=== PATIENT | male | born 1940 | race Caucasian/White ===

== ENCOUNTER 2017-07-07 08:17 | Observation (INO) ==
[2017-07-07 08:43] LABS: Basophils % 0.3 %; Eosinophils # 0.1 K/mcL (0.0-0.6); Hematocrit 42.3 % (37.5-50.1); Immature Granulocytes % 0.3 % (0-4); Lymphocytes # 1.1 K/mcL (0.6-4.6); Lymphocytes % 33.6 %; Mean Corpuscular HGB Conc 35.5 g/dL (31.6-35.5); Mean Corpuscular Hemoglobin 30.3 pg (28.0-33.3); Mean Corpuscular Volume 85.5 fL (83.0-100.0); Mean Platelet Volume 12.7 fL (9.4-12.4); Monocytes # 0.3 K/mcL (0.0-1.3); Monocytes % 9.3 %; Neutrophils # 1.8 K/mcL (1.6-8.9); Red Blood Count 4.95 M/mcL (4.19-5.50); Segmented Neutrophils % 53.5 %
[2017-07-07 08:50] LABS: INR 1.1; Prothrombin Time 11.7 Seconds (9.4-12.1)
[2017-07-07 08:52] LABS: Activated Partial Thrombo Time 34.5 Seconds (26.0-36.0); Platelet Count 94 K/mcL (140-400)
[2017-07-07 09:03] LABS: Calcium 9.2 mg/dL (8.6-10.8); Potassium 3.9 mEq/L (3.5-4.5)
[2017-07-07] MEDS ORDERED: cloNIDine HCl 0.1 MG TABLET PO STA (09:08)
--- NOTE | 2017-07-07 09:09 | Emergency Department Note ---
Disposition Clinical Impression: Leg pain, left Disposition: Admitted As Inpatient Condition: Good Instructions: Leg Pain (ED) Reasons to Return/Additional Instructions: Venous Doppler all and have scheduled Blood pressure screening: When you had your blood pressure taken, if the top number was greater than 120 with a bottom number was greater than 80, I discussed and recommended that you call your primary care provider or a physician of your choice this week to arrange follow-up for further evaluation of your blood pressure. Elevated blood pressures which go untreated can lead to stroke, heart attack, kidney failure and other life-threatening diseases. This is a screening exam and recommendations are to follow with your Family Physician. ( We discussed reasons why the elevation could be occurring at this time. ) If you have had an EKG and/or x-ray performed in the emergency department, it will be reviewed by the carpentry teacher and/or radiologist. If the review changes your diagnosis or treatment you will be contacted at the phone number you provided. Prescribed outpatient testing: Please call to schedule an appointment for the test that was ordered on the form provided. If you been prescribed an antibiotic: Take it as instructed until itis all finished. If you cannot tolerate that medication for some reason, call your physician for a replacement. If he had a specimen collected for a culture, a culture report takes 48-72 hours to generate. You will be contacted if a change in treatment is needed. Return if your condition worsens or if you have severe pain, fever, vomiting or difficulty breathing. If you received or were prescribed a medication that may cause drowsiness ( Tramadol, Phenergan, Trazodone, Diazepam, Lorazepam, Hydroxyzine, Xanax, Hydrocodone, Oxycodone, Codeine, or any other medication) DO NOT drive or drink alcohol, or operate machinery that requires you to be alert for at least 8 hours after taking that medication. If you smoke or chew tobacco products: discuss with your family physician options to help in the cessation in the use of tobacco products. If you to find a physician: Go to [email or web address] or call: [facility], [facility] [phone] [facility], You may have multiple scripts and some may have been electronically sent . If you are give a printed script please also take this in when filling the scripts. A diagnosis may require multiple medications to treat and all are important in your healthcare issues. Referrals: NONE,PCP [Primary Care Provider] - Forms: ED Satisfaction Letter Time of Disposition: 12:03 (michela velasco [facility]) Extremity Problem HPI - General Chief complaint: ED Extremity Problem,Nontraumatic Stated complaint: pain to left leg Time Seen by Provider: 07/07/17 08:22 Source: patient Mode of arrival: ambulatory Limitations: no limitations Nursing Notes Reviewed: Yes Vital Signs Reviewed: Yes - History of Present Illness HPI Narrative: 76-year-old male who presents to the emergency room his been having left leg pain timeframe is unclear patient initially told nursing staff that it was since his stroke but told but told told EMS that it was 2 weeks but told myself that was only 2 days the family member that is here with a brought him in because he had a only been complaining of it to the family for the last couple of days" the family member states that he has been showing some signs of dementia significantly worsening since the recent stroke patient denies any shortness of breath chest pain chest pressure palpitations cough hemoptysis or sputum production states that he does get around the house recent pains in the back of the leg with radiation up into the inner aspect of the left thigh he has had a little bit of pain in the back denies though any difficulty with bowel movements denies difficulty urinating or stooling denies any other rashes or lesions denies any additional complaints with the entire review of systems Pt Subjective Complaint: extremity swelling Onset (ago): day(s) (3) Consistency: intermittent Injury Location: left, lower extremity Pain Scale: 2 Quality: aching Improves with: nothing Worsens with: walking, palpation Associated symptoms: Denies: chest pain, shortness of breath, abdominal pain, back pain, bowel/bladder symptoms, fever, myalgias, arthralgias, rash, change in appearance, swelling, redness Context: other (cva) - Related Data Home Medications Medication Instructions Recorded Confirmed Aspirin [Lo-Dose Aspirin EC] 81 mg PO BID 07/07/17 07/07/17 Atorvastatin [Lipitor] 40 mg PO HS 07/07/17 07/07/17 Cyanocobalamin (Vitamin B-12) 1,000 mcg PO DAILY 07/07/17 07/07/17 [Vitamin B12] Escitalopram [Lexapro] 5 mg PO DAILY 07/07/17 07/07/17 Glimepiride [Amaryl] 4 mg PO DAILY 07/07/17 07/07/17 Losartan [Cozaar] 25 mg PO DAILY 07/07/17 07/07/17 Omeprazole [PriLOSEC] 40 mg PO DAILY 07/07/17 07/07/17 amLODIPine [Norvasc] 10 mg PO DAILY 07/07/17 07/07/17 cloNIDine HCl [Clonidine HCl] 0.2 mg PO BID 07/07/17 07/07/17 hydroCHLOROthiazide 12.5 mg PO DAILY 07/07/17 07/07/17 [Hydrochlorothiazide] metFORMIN [Glucophage] 1,000 mg PO BID 07/07/17 07/07/17 Allergies Allergy/AdvReac Type Severity Reaction Status Date / Time No Known Allergies Allergy Verified 07/07/17 08:18 All systems ED: reviewed and negative except as stated. Review of Systems: As Per HPI Constitutional: Reports: weakness. Denies: fever, chills Eyes: Denies: eye pain, eye discharge ENT ED: Denies: ear pain, throat pain Cardiovascular: Denies: chest pain, palpitations Respiratory: Denies: cough, dyspnea Gastrointestinal: Denies: abdominal pain, nausea, vomiting Genitourinary: Denies: urgency, dysuria, frequency Musculoskeletal: Denies: back pain, neck pain Integumentary: Denies: rash, abrasion, lesions Neurological: Reports: weakness, abnormal gait. Denies: headache Psychiatric: Denies: anxiety, depression Endocrine: Denies: fatigue, heat or cold intolerance Hematological/Lymphatic: Denies: easy bleeding Allergic/Immunologic: Denies: facial swelling Past Medical History - Past Medical History Attestation: Yes The following information was validated with the patient. Source: patient, old records reviewed, nursing notes reviewed Medical history: Reports: CVA, diabetes, hyperlipidemia, hypertension Surgical history: Reports: no surgical history Psychiatric history: Reports: no psych history - Social History Smoking Status: Never smoker Smokeless Tobacco Status: No Alcohol use: Reports: none Drug use: Reports: none Physical Exam - General Limitations: no limitations, altered mental status (pt showing signs of early dementa=ia in the er) General appearance: alert, in no apparent distress - Head Head exam: atraumatic, normocephalic, normal inspection - Eye Eye exam: Present: normal appearance, PERRL, EOMI - ENT ENT exam: normal exam, normal oropharynx, mucous membranes moist, normal external ear exam - Neck Neck exam: Present: normal inspection, full ROM, trachea midline - Chest Chest inspection: Present: normal inspection, symmetric chest wall rise - Respiratory Respiratory exam: Present: normal lung sounds bilaterally - Cardiovascular Cardiovascular exam: Present: regular rate, normal rhythm, normal heart sounds - Abdominal Exam Abdominal exam: Present: soft, Non-Tender, normal bowel sounds. Absent: mass, pulsatile mass - Extremities Exam Extremities exam: Present: normal inspection, full ROM, normal capillary refill , other (pt showing some residual weakness on the left hand side due to prior CVA). Absent: tenderness - Expanded Upper Extremity Exam Shoulder exam: Present: normal inspection, full ROM Arm exam: Present: normal inspection, full ROM Elbow exam: Present: normal inspection, full ROM Forearm/Wrist exam: Present: normal inspection, full ROM Hand exam: Present: normal inspection, full ROM Vascular exam: Normal: capillary refill, radial pulse - Expanded Lower Extremity Exam Hip/Pelvis exam: Present: normal inspection, full ROM Upper leg exam: Present: normal inspection, full ROM Knee exam: Present: normal inspection, full ROM Lower leg exam: Present: normal inspection, full ROM, tenderness, swelling, Homans' sign Ankle exam: Present: normal inspection, full ROM Foot/toe exam: Present: normal inspection, full ROM Neurovascular/Tendon exam: Present: normal capillary refill, normal fine/light touch Gait: observed and normal - Back Exam Back exam: Present: normal inspection, full ROM. Absent: muscle spasm - Neurological Exam Neurological exam: Present: alert, oriented X3, CN II-XII intact, normal gait - Psychiatric Psychiatric exam: Present: normal affect, normal mood - Skin Skin exam: Present: warm, dry, intact, normal color Course Course Narrative: Patient seen and examined elevated d-dimer noted as result had a CTA performed CTA was negative as result the patient be admitted for observation Doppler will be done in the a.m. Vital Signs Temperature 97.8 F 07/07/17 08:19 Pulse Rate 59 07/07/17 08:19 Respiratory Rate 61 07/07/17 08:19 Blood Pressure 210/114 07/07/17 08:19 O2 Sat by Pulse Oximetry 96 07/07/17 08:19 Temperature 97.8 F 07/07/17 08:19 Pulse Rate 56 07/07/17 11:30 Respiratory Rate 18 07/07/17 11:30 Blood Pressure 152/94 07/07/17 11:30 O2 Sat by Pulse Oximetry 95 07/07/17 11:30 Oxygen Delivery Oxygen Delivery Room Air Extremity Problem, Nontraumati - Differential Diagnosis Likely: deep venous thrombosis, lower extremity edema - Medical Records Medical records reviewed: Yes I reviewed the patient's medical records. - Lab Data Lab results reviewed: Yes I reviewed the patient's lab results. Result diagrams: 07/07/17 08:29 07/07/17 08:29 Lab Results 07/07/17 07/07/17 07/07/17 Range/Units 08:29 08:29 08:29 WBC 3.3 L (4.3-11.1) K/mcL RBC 4.95 (4.19-5.50) M/mcL Hgb 15.0 (12.9-16.9) g/dL Hct 42.3 (37.5-50.1) % MCV 85.5 (83.0-100.0) fL MCH 30.3 (28.0-33.3) pg MCHC 35.5 (31.6-35.5) g/dL RDW 12.0 (11.5-14.5) % Plt Count 94 L (140-400) K/mcL MPV 12.7 H (9.4-12.4) fL Immature Gran % 0.3 (0-4) % Seg Neutrophils % 53.5 % Lymphocytes % 33.6 % Monocytes % 9.3 % Eosinophils % 3.0 % Basophils % 0.3 % Neutrophils # 1.8 (1.6-8.9) K/mcL Lymphocytes # 1.1 (0.6-4.6) K/mcL Monocytes # 0.3 (0.0-1.3) K/mcL Eosinophils # 0.1 (0.0-0.6) K/mcL Basophils # 0.0 (0.0-0.2) K/mcL PT 11.7 (9.4-12.1) Seconds INR 1.1 APTT 34.5 (26.0-36.0) Seconds D-Dimer 736 H (0-500) ng/mLFEU Sodium 140 (136-145) mEq/L Potassium 3.9 (3.5-4.5) mEq/L Chloride 103 (98-109) mEq/L Carbon Dioxide 27 (19-29) mEq/L BUN 23 (8-26) mg/dL Creatinine 1.49 H (0.72-1.25) mg/dL Est GFR ( Amer) 56 L (> 60) Est GFR (Non-Af Amer) 46 L (> 60) BUN/Creatinine Ratio 15 (6-26) Glucose 184 H (70-99) mg/dL Calculated Osmolality 298 (280-300) Calcium 9.2 (8.6-10.8) mg/dL Critical Care Time Critical Care Time: No
[2017-07-07] MEDS ORDERED: 0.9 % Sodium Chloride 1,000 ML IVC ONE (11:00)
[2017-07-07] MEDS ORDERED: *HR* Enoxaparin 30 MG/0.3 ML SYRINGE SQ ONE (12:03)
[2017-07-07] MEDS ORDERED: Dextrose Gel 15 GM PO PRN ×2 (12:43)
[2017-07-07] MEDS ORDERED: Naloxone 0.4 MG/ML INJ IVP PRN (12:43)
[2017-07-07] MEDS ORDERED: *HR* Dextrose 50 % in Water (Syg) 50 ML SYRINGE IVP PRN (12:43)
[2017-07-07] MEDS ORDERED: 0.9 % Sodium Chloride 1,000 ML IVC SCH (12:43)
[2017-07-07] MEDS ORDERED: Acetaminophen 325 MG TABLET PO PRN (12:43)
[2017-07-07] MEDS ORDERED: Ibuprofen 400 MG TABLET PO PRN (12:43)
[2017-07-07] MEDS ORDERED: D5% in Water 1,000 ML IVC PRN (12:43)
--- NOTE | 2017-07-07 15:09 | Internal Med History&Physical ---
Date of Encounter: 07/07/17 Time of Encounter: 14:40 Assessment and Plan (1) Leg pain, left Current visit: Yes Status: Chronic Chronic with acute worsening. Doubt acute DVT. Elevated d-dimer is within age- adjusted range of normal. I talked to the family and it was agreed to proceed with venous ultrasound tomorrow. He will be discharged tomorrow after the ultrasound and will be moving to [place] to live with his grandson. (2) CKD (chronic kidney disease) stage 3, GFR 30-59 ml/min Current visit: Yes Status: Chronic Present on all labs since the earliest reported 2013 labs in [place] archive system. Monitor renal indices as needed. Internal Medicine - H&P: HPI Chief complaint: Left leg pain Admitted From: Home Plans for Post Hospital Care: Home History of present illness: Mr. Lockwood is a 76 year old male who came to the emergency room stating he has had pain in his left leg since an July 2016 stroke. The pain seemed to be worsening over the last few days. He came to emergency room and was evaluated. D-dimer was elevated. Chest CTA was unremarkable for pulmonary embolus. He was admitted to [facility] floor for a left leg ultrasound and further evaluation as needed. He denies past history of DVT or pulmonary embolus. He has not had prolonged inactivity. His cardiovascular history is pertinent for hypertension but no known AR heart failure or angina. Past Med Surg Social Fam HX - Past Medical History Medical history: CVA, diabetes, hyperlipidemia, hypertension Psychiatric history: no psych history - Past Surgical History Surgical History: no surgical history - Social History Smoking Status: Never smoker Smokeless Tobacco Status: No Alcohol use: none Drug use: none Internal Medicine - H&P: Meds Aspirin [Lo-Dose Aspirin EC] 81 mg PO BID 07/07/17 [History] Atorvastatin [Lipitor] 40 mg PO HS 07/07/17 [History] Cyanocobalamin (Vitamin B-12) [Vitamin B12] 1,000 mcg PO DAILY 07/07/17 [History ] Escitalopram [Lexapro] 5 mg PO DAILY 07/07/17 [History] Glimepiride [Amaryl] 4 mg PO DAILY 07/07/17 [History] Losartan [Cozaar] 25 mg PO DAILY 07/07/17 [History] Omeprazole [PriLOSEC] 40 mg PO DAILY 07/07/17 [History] amLODIPine [Norvasc] 10 mg PO DAILY 07/07/17 [History] cloNIDine HCl [Clonidine HCl] 0.2 mg PO BID 07/07/17 [History] hydroCHLOROthiazide [Hydrochlorothiazide] 12.5 mg PO DAILY 07/07/17 [History] metFORMIN [Glucophage] 1,000 mg PO BID 07/07/17 [History] 3 Allergy/AdvReac Type Severity Reaction Status Date / Time No Known Allergies Allergy Verified 07/07/17 08:18 All Systems PM: A 10-system review of systems was performed and is negative for pertinent findings except as documented above in the HPI. Review of systems: Cardiovascular: As per history of present illness Respiratory: He smoked for approximately 10 years in early adulthood. He denies chronic lung disease. GI: He denies disorders of his liver gallbladder or exocrine pancreas : No history of hematuria dysuria or kidney stones. He has CKD stage III but was unaware of this. Neurologic: He had an ischemic stroke July 2016 and received TPA at [facility] prior to transfer to [facility]. 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 He was at [facility] for a few weeks but has returned to independent living. He does not have known seizures. Endocrine: He was diagnosed with DM2 over 30 years ago. He has hyperlipidemia but no known thyroid disease. Hematology/oncology: Denies blood disorders or cancers. He does have mild thrombocytopenia. Psychiatric: Denies anxiety depression or other mental health issues Musculoskeletal: He denies arthritis gout other bone joint or muscle disorders. - Constitutional Vitals: Temp Pulse Resp BP Pulse Ox 97.6 F 62 18 196/90 96 07/07/17 13:09 07/07/17 13:09 07/07/17 13:09 07/07/17 13:09 07/07/17 13:09 Exam: Gen.: He is a well-developed well-nourished male sitting on the side who appears in no acute distress. HEENT: Head is atraumatic and normocephalic. Eyes: EOMI. There is no scleral icterus. Mouth: Mucosa is moist. Neck: Supple and nontender. There is no thyromegaly or adenopathy noted. Heart: Regular without murmurs gallops or ectopics. Lungs: No wheezes or crackles are heard. Abdomen: Soft and nontender. Exam is limited because he is in the seated position. Extremities: He has 1+ edema of the dorsum of the feet bilaterally. There is also slight edema of the anterior shins bilaterally. Edema slightly worse on the left than the right. Feet are slightly cool to touch. Dorsalis pedis and posterior tibial pulses are not palpable because of the edema. He has no reproduction of his left leg pain by straight leg raising or internal/external rotation at the hip. He has no significant tenderness of the left trochanteric bursa. Neurologic: Mental status: He is talkative and a fair to good historian. Cranial nerves: Smile is symmetric. There is slight flattening of the left nasolabial fold. Forehead wrinkles bilaterally. Tongue protrudes midline. EOMI. Motor: There is no pronator drift. Cerebellar: Finger to nose is intact bilaterally. Skin: Warm and dry Internal Med - H&P Results - Labs CBC & Chem 7: 07/07/17 08:29 07/07/17 08:29
[2017-07-07] MEDS: cloNIDine HCl 0.1 MG TABLET PO SCH ×3 (15:32→21:53)
[2017-07-07] MEDS: Acetaminophen 325 MG TABLET PO SCH (18:19)
[2017-07-07] MEDS ORDERED: cloNIDine HCl 0.1 MG TABLET PO SCH (21:00)
[2017-07-07] MEDS ORDERED: traMADol 50 MG TABLET PO PRN (21:26)
[2017-07-07] MEDS: *HR* Enoxaparin 100 MG/ML SYRINGE SQ SCH (21:52)
[2017-07-07] MEDS: Aspirin Enteric Coated 81 MG Tablet PO SCH (21:52)
[2017-07-07] MEDS ORDERED: *HR* OxyCODONE/APAP 5/325 TABLET PO PRN (23:25)
[2017-07-07] MEDS ORDERED: *HR* OxyCODONE/APAP 5/325 TABLET PO ONE (23:30)
[2017-07-07] MEDS ORDERED: amLODIPine 5 MG TABLET PO ONE (23:33)
[2017-07-08] MEDS: Acetaminophen 325 MG TABLET PO SCH ×2 (04:36→09:47)
[2017-07-08 05:10] LABS: Basophils % 0.3 %; Eosinophils # 0.1 K/mcL (0.0-0.6); Eosinophils % 2.3 %; Hematocrit 39.9 % (37.5-50.1); Hemoglobin 14.2 g/dL (12.9-16.9); Immature Granulocytes % 0.7 % (0-4); Lymphocytes # 1.3 K/mcL (0.6-4.6); Lymphocytes % 43.3 %; Mean Corpuscular HGB Conc 35.6 g/dL (31.6-35.5); Mean Corpuscular Hemoglobin 30.4 pg (28.0-33.3); Mean Corpuscular Volume 85.4 fL (83.0-100.0); Mean Platelet Volume 12.8 fL (9.4-12.4); Monocytes # 0.3 K/mcL (0.0-1.3); Monocytes % 9.4 %; Neutrophils # 1.4 K/mcL (1.6-8.9); Red Blood Count 4.67 M/mcL (4.19-5.50); Red Cell Distribution Width 12.1 % (11.5-14.5)
[2017-07-08 05:12] LABS: Platelet Count 88 K/mcL (140-400)
[2017-07-08 05:30] LABS: Calcium 8.9 mg/dL (8.6-10.8); Potassium 3.5 mEq/L (3.5-4.5)
[2017-07-08] MEDS ORDERED: amLODIPine 5 MG TABLET PO SCH (09:00)
[2017-07-08] MEDS ORDERED: hydroCHLOROthiazide 25 MG TABLET PO SCH (09:00)
[2017-07-08] MEDS ORDERED: amLODIPine 5 MG TABLET PO ONE (09:00)
[2017-07-08] MEDS ORDERED: Cyanocobalamin (B-12) 1,000 MCG TABLET PO SCH (09:00)
[2017-07-08] MEDS: *HR* Enoxaparin 100 MG/ML SYRINGE SQ SCH (09:08)
[2017-07-08] MEDS: cloNIDine HCl 0.1 MG TABLET PO SCH (09:49)
[2017-07-08] MEDS: Aspirin Enteric Coated 81 MG Tablet PO SCH (09:49)
[2017-07-08 10:38] VITALS: BP 172/78
--- NOTE | 2017-07-08 14:22 | Discharge Summary ---
Date of Encounter: 07/08/17 Time of Encounter: 14:10 - Discharge Diagnosis (1) Leg pain, left Priority: Primary Status: Chronic (2) CKD (chronic kidney disease) stage 3, GFR 30-59 ml/min Priority: Secondary Status: Chronic - Discharge Medications Prescriptions: Doxazosin [Cardura] 4 mg PO HS #30 tablet Escitalopram [Lexapro] 5 mg PO DAILY #15 tablet Losartan Potassium [Cozaar] 50 mg PO DAILY #30 tab Omeprazole [PriLOSEC] 40 mg PO DAILY PRN #30 capsule.dr PAN Reason: Dyspepsia Home Medications: Aspirin [Lo-Dose Aspirin EC] 81 mg PO BID 07/07/17 [History] Atorvastatin [Lipitor] 40 mg PO HS 07/07/17 [History] Cyanocobalamin (Vitamin B-12) [Vitamin B12] 1,000 mcg PO DAILY 07/07/17 [History ] Glimepiride [Amaryl] 4 mg PO DAILY 07/07/17 [History] cloNIDine HCl [Clonidine HCl] 0.2 mg PO BID 07/07/17 [History] hydroCHLOROthiazide [Hydrochlorothiazide] 12.5 mg PO DAILY 07/07/17 [History] metFORMIN [Glucophage] 1,000 mg PO BID 07/07/17 [History] Doxazosin [Cardura] 4 mg PO HS #30 tablet 07/08/17 [Rx] Escitalopram [Lexapro] 5 mg PO DAILY #15 tablet 07/08/17 [Rx] Losartan Potassium [Cozaar] 50 mg PO DAILY #30 tab 07/08/17 [Rx] Omeprazole [PriLOSEC] 40 mg PO DAILY PRN #30 capsule. 07/08/17 [Rx] Allergies/Adverse Reactions: 3 Allergy/AdvReac Type Severity Reaction Status Date / Time No Known Allergies Allergy Verified 07/07/17 08:18 Date of admission: 07/07/17 12:36 Primary care physician: PCP NONE Consults: 07/07/17 13:24 Consult to Entry Level Project Coordinator [CONS] Routine Reason for SW Consult: discharge planning. pt unable to care for self - Patient Status Disposition: Home, Self-Care Condition: Good Overall status at discharge: patient is progressing back to baseline - Discharge Instructions Follow Up With: NONE,PCP [Primary Care Provider] - 1 week - Diet and Activity Activity: resume usual activities as tolerated Diet: advance to your usual diet Hospital course: Mr. Lockwood is a 76 year old male who came to the emergency room stating he has had pain in his left leg since an July 2016 stroke. The pain seemed to be worsening over the last few days. He came to emergency room and was evaluated. D-dimer was elevated. Chest CTA was unremarkable for pulmonary embolus. He was admitted to [facility] for a left leg ultrasound and further evaluation as needed. Initial orders were written by the emergency room physician. I saw him on July 07 and performed a history and physical. A left leg venous ultrasound was done the early afternoon of July 08. No evidence of DVT was seen. I discontinued his amlodipine to lessen edema. He was started on doxazosin and higher dose Cozaar to improve blood pressure control. On July 08 he was stable for discharge home. He will follow with a [place] physician as soon as an appointment can be arranged. He is moving to the [place] area to live with his son. - Time Spent with Patient Total time spent providing and/or coordinating discharge services: - Constitutional Vitals: Temp Pulse Resp BP Pulse Ox 97.6 F 79 17 172/78 96 07/08/17 10:37 07/08/17 10:37 07/08/17 10:37 07/08/17 10:37 07/08/17 10:37
[2017-07-08] MEDS ORDERED: FLUARIX QUAD 2017-18 36MOS UP/PF 0.5 ML SYRINGE IM ONE (14:59)
--- NOTE | 2017-07-09 07:53 | Venous Imaging Report ---
LE Venous Duplex Patient Name:Xavier Lockwood Order Number:[id number] Procedure Date:07/08/2017 Date:1940ge:76 yrs Gender:Male Location:[facility] Room #: 42 Fire Prevention Specialist:True Aldrich RDCS, RVT Referring MD:Janie Vizcaino DO Reading MD:Viktor Aparicio MD Primary Indications:Swelling of limb Secondary Indications: Impressions: Normal left lower extremity deep and superficial venous exam. Normal contralateral common femoral vein. Findings Venous Duplex Results: Right: Venous imaging of the lower extremity reveals full patency and normal vessel compressibility of the right common femoral. Doppler signals in the evaluated veins were normal. Left: Venous imaging of the lower extremity reveals full patency and normal vessel compressibility of the left distal iliac, left common femoral, left superficial femoral, left popliteal, left posterior tibial, left peroneal, left calf oil heaterman, left saphenofemoral junction, left great saphenous and left lesser saphenous. Doppler signals in the evaluated veins were normal. Prior Study: No change compared to prior study dated: 03/14/2017. Lower Extremity Venous Duplex Side Vein Compress Spontaneous Flow Augment Diameter (cm) Depth (cm) Left Distal Iliac Normal Yes Phasic Yes Left Common Femoral Normal Yes Phasic Yes Left Superficial Femoral Normal Yes Phasic Yes Left Popliteal Normal Yes Phasic Yes Left Posterior Tibial Normal Yes Phasic Yes Left Peroneal Normal Yes Phasic Yes Left Calf Vehicle Service Agent Normal Yes Phasic Yes Left Saphenofemoral Junction Normal Yes Phasic Yes Left Great Saphenous Normal Yes Phasic Yes Left Lesser Saphenous Normal Yes Phasic Yes Right Common Femoral Normal Yes Phasic Yes Updated by Viktor Aparicio MD on 07/09/2017 7:48:13 AM electronically signed on 07/09/2017 7:48:24 AM with status of Final
== END 2017-07-08 15:15 | disposition home or self-care (01) ==
LOC: INPPIK 08:17 → EMEROOPIK 08:17 → INPPIK 12:55
PROVIDERS: ADMIT Internal Medicine; ATTEND Internal Medicine

== ENCOUNTER 2018-03-07 21:00 | Inpatient (IN) ==
[2018-03-07] MEDS ORDERED: Lidocaine -MPF 2% 5 ML VIAL INFILT ONE (21:21)
--- NOTE | 2018-03-07 21:24 | Emergency Department Note ---
Disposition Clinical Impression: Laceration, Injury of tendon of left hand, Dementia, Renal insufficiency Disposition: Transfer Short-Term Hosp Condition: Fair Time of Disposition: 23:27 ( will place in observation) Wound/Laceration HPI - General Chief Complaint: ED Wound/Laceration Stated Complaint: 'SCRAPE TO LEFT HAND" Time Seen by Provider: 03/07/18 21:23 Source: EMS Mode of arrival: EMS Limitations: age Nursing Notes Reviewed: Yes Vital Signs Reviewed: Yes - History of Present Illness HPI Narrative: Patient presents via EMS after sustaining a fall and laceration to the palmar aspect of the left hand over the palmar crease. Patient reports that last week he had a fall similarly and had landed on his left hand and he still has some sutures intact from a few days ago. He now has a very large laceration involving the palm of the hand and I have tried to explain to the patient that this is an area which is very worrisome for tendon injury. I have told him that he will most likely need to see a hand surgeon in follow-up. Patient's daughter is at bedside, and reports that patient has had this occur twice where he has been found at nighttime wandering the streets, and she is concerned that he was going to get himself killed. Daughter is asking that patient be admitted for chcf placement. Onset (ago): [employer] Extremity Location: Left: hand (Patient has a large laceration involving the crease of the left hand,) Place: outdoors Mechanism: accidental, fall Associated symptoms: Reports: pain Pain Severity: moderate Pain Scale: 5 - Related Data Home Medications Medication Instructions Recorded Confirmed Aspirin [Lo-Dose Aspirin EC] 81 mg PO DAILY 07/07/17 03/07/18 Cyanocobalamin (Vitamin B-12) 1,000 mcg PO DAILY 07/07/17 03/07/18 [Vitamin B12] cloNIDine HCl [Clonidine HCl] 0.2 mg PO BID 07/07/17 03/07/18 hydroCHLOROthiazide 12.5 mg PO DAILY 07/07/17 03/07/18 [Hydrochlorothiazide] metFORMIN [Glucophage] 1,000 mg PO BID 07/07/17 03/07/18 Losartan Potassium [Cozaar] 100 mg PO DAILY 10/02/17 03/07/18 Melatonin 5 mg PO HS 02/25/18 03/07/18 Previous Rx's Medication Instructions Recorded cephALEXin [Keflex] 500 mg PO QID #40 capsule 03/07/18 Allergies Allergy/AdvReac Type Severity Reaction Status Date / Time No Known Allergies Allergy Verified 02/25/18 17:49 Constitutional: Denies: fever, chills, weakness, weight change Eyes: Denies: eye pain, eye discharge, vision change ENT ED: Denies: ear pain, throat pain, dental pain, hearing loss, epistaxis, congestion, dysphagia Cardiovascular: Denies: chest pain, palpitations, dyspnea on exertion, edema, syncope Respiratory: Denies: cough, dyspnea, wheezes, hemoptysis, stridor Gastrointestinal: Denies: abdominal pain, nausea, vomiting, diarrhea, constipation, hematemesis, melena, hematochezia Genitourinary: Denies: urgency, dysuria, frequency, hematuria Musculoskeletal: Reports: other (Large laceration to the palm of the left hand) . Denies: back pain, neck pain, arthralgia, myalgia Integumentary: Denies: rash, abrasion, lesions Neurological: Denies: headache, weakness, numbness, paresthesias, confusion, abnormal gait, vertigo Psychiatric: Denies: anxiety, depression, suicidal thoughts, homicidal thoughts , auditory hallucinations, visual hallucinations Endocrine: Denies: fatigue Hematological/Lymphatic: Denies: easy bleeding, easy bruising Allergic/Immunologic: Denies: facial swelling, urticaria Past Medical History - Past Medical History Medical history: Reports: CVA, diabetes, hyperlipidemia, hypertension Surgical history: Reports: no surgical history Psychiatric history: Reports: no psych history - Social History Smoking Status: Never smoker Smokeless Tobacco Status: No Alcohol use: Reports: none Drug use: Reports: none Physical Exam - General Limitations: no limitations General appearance: alert, in no apparent distress - Head Head exam: atraumatic, normocephalic, normal inspection - Eye Eye exam: Present: normal appearance, PERRL, EOMI - Expanded Eye Exam Pupils: Left: reactive - ENT ENT exam: normal exam, normal oropharynx, mucous membranes moist - Expanded ENT Exam External ear exam: Present: normal external inspection Mouth exam: Present: normal external inspection Teeth exam: Present: normal inspection Throat exam: Present: normal inspection - Neck Neck exam: Present: normal inspection, full ROM, trachea midline - Chest Chest inspection: Present: normal inspection, symmetric chest wall rise - Respiratory Respiratory exam: Present: normal lung sounds bilaterally - Cardiovascular Cardiovascular exam: Present: regular rate, normal rhythm, normal heart sounds - Abdominal Exam Abdominal exam: Present: soft, Non-Tender. Absent: tenderness, distention, guarding, rebound, rigidity - Extremities Exam Extremities exam: Present: normal inspection, full ROM. Absent: tenderness, pedal edema - Expanded Upper Extremity Exam Shoulder exam: Present: normal inspection, full ROM Arm exam: Present: normal inspection, full ROM Elbow exam: Present: normal inspection, full ROM Forearm/Wrist exam: Present: normal inspection, full ROM Hand exam: Present: full ROM, laceration, other (Laceration to the palmar crease measures approximately 7 cm in size) Hand L/R front image: 1 - laceration (Laceration is more than 5 cm in size, and have also palmar crease) Vascular exam: Normal: capillary refill, radial pulse - Expanded Lower Extremity Exam Hip/Pelvis exam: Present: normal inspection, full ROM Upper leg exam: Present: normal inspection, full ROM Knee exam: Present: normal inspection, full ROM Lower leg exam: Present: normal inspection, full ROM Ankle exam: Present: normal inspection, full ROM Foot/toe exam: Present: normal inspection, full ROM Neurovascular/Tendon exam: Absent: motor deficit, sensory deficit, tendon deficit - Back Exam Back exam: Present: normal inspection, full ROM. Absent: tenderness - Neurological Exam Neurological exam: Present: alert, oriented X3 - Expanded Neurological Exam Patient oriented to: Present: person, place, time Coma Scale Eye Opening: Spontaneous Coma Scale Motor Response: Obeys Commands Coma Scale Verbal Response: Oriented Coma Scale Total: 15 - Psychiatric Psychiatric exam: Present: normal affect, normal mood - Skin Skin exam: Present: warm, dry, intact, normal color Course Vital Signs Temperature 98.2 F 03/07/18 21:02 Pulse Rate 80 03/07/18 21:02 Respiratory Rate 20 03/07/18 21:02 Blood Pressure 210/105 03/07/18 21:02 O2 Sat by Pulse Oximetry 95 03/07/18 21:02 Temperature 98.2 F 03/07/18 21:02 Pulse Rate 90 03/07/18 23:09 Respiratory Rate 18 03/07/18 23:09 Blood Pressure 179/103 03/07/18 23:09 O2 Sat by Pulse Oximetry 98 03/07/18 23:09 Oxygen Delivery Oxygen Delivery Room Air Procedures - Laceration Laceration 1 Site: hand (Patient was told that there may be a tendon injury patient needs to follow-up with hand surgery) Side (If applicable): left Size (cm): 7 Description: stellate Depth: simple, single layer Local Anesthetic: lidocaine 2% Pre-repair: wound explored, irrigated extensively, deep structures intact Skin layer closed with: nylon Size: 4-0 Number of sutures/shana: 12 Technique: simple, interrupted Wound/Laceration - MDM Narrative Medical decision making narrative: I have told the patient that this laceration most likely involves the tendon and he needs to see a hand surgeon, patient is alert , I have explained to him loss of function of the hand and inability to move his fingers if he does not follow-up. His is also on that side and hurt me to help patient this. Patient's family wants him admitted for chcf placement, after laceration repair labs were added nonenhanced CT of head without contrast chest x-ray and x-ray of the hand was also obtained. X-rays shows no acute abnormality I spoke to the patient's family member who is at bedside and as stated that this patient does have chronic renal insufficiency, and that this is a chronic problem for the patient nothing new - Differential Diagnosis Differential Diagnosis: Likely: laceration, avulsion of skin, fracture - Medical Records Medical records reviewed: Yes I reviewed the patient's medical records. - Lab Data Lab results reviewed: Yes I reviewed the patient's lab results. Result diagrams: 03/07/18 22:19 03/07/18 22:19 Lab Results 03/07/18 03/07/18 Range/Units 22:19 22:19 WBC 7.0 (4.3-11.1) K/mcL RBC 4.95 (4.19-5.50) M/mcL Hgb 15.0 (12.9-16.9) g/dL Hct 42.9 (37.5-50.1) % MCV 86.7 (83.0-100.0) fL MCH 30.3 (28.0-33.3) pg MCHC 35.0 (31.6-35.5) g/dL RDW 12.3 (11.5-14.5) % Plt Count 151 (140-400) K/mcL MPV 12.2 (9.4-12.4) fL Immature Gran % 0.3 (0-4) % Seg Neutrophils % 76.3 % Lymphocytes % 16.1 % Monocytes % 6.0 % Eosinophils % 0.9 % Basophils % 0.4 % Neutrophils # 5.3 (1.6-8.9) K/mcL Lymphocytes # 1.1 (0.6-4.6) K/mcL Monocytes # 0.4 (0.0-1.3) K/mcL Eosinophils # 0.1 (0.0-0.6) K/mcL Basophils # 0.0 (0.0-0.2) K/mcL Sodium 137 (136-145) mEq/L Potassium 4.6 (3.5-5.1) mEq/L Chloride 101 (98-107) mEq/L Carbon Dioxide 28 (23-29) mEq/L BUN 37 H (8-23) mg/dL Creatinine 2.55 H (0.70-1.30) mg/dL Est GFR ( Amer) 30 L (> 60) Est GFR (Non-Af Amer) 25 L (> 60) BUN/Creatinine Ratio 15 (6-26) Glucose 172 H (70-105) mg/dL Calculated Osmolality 297 (280-300) Calcium 9.3 (8.6-10.3) mg/dL Total Bilirubin 0.7 (0.3-1.0) mg/dL AST 18 (13-39) Units/L ALT 15 (7-52) Units/L Alkaline Phosphatase 66 (34-104) Units/L Serum Total Protein 6.4 (6.4-8.9) g/dL Albumin 3.7 (3.5-5.7) g/dL Globulin 2.7 (2.4-3.5) g/dL Albumin/Globulin Ratio 1.4 (1.1-2.2) - Radiology Data Radiology results reviewed: Yes I reviewed the patient's radiology results. Chest x-ray portable shows no acute abnormality, CT scan of head without contrast per radiology reading shows no acute abnormality, x-ray of the left hand per radiology reading shows no acute abnormality.
[2018-03-07 22:25] LABS: Basophils % 0.4 %; Eosinophils # 0.1 K/mcL (0.0-0.6); Eosinophils % 0.9 %; Hematocrit 42.9 % (37.5-50.1); Immature Granulocytes % 0.3 % (0-4); Lymphocytes # 1.1 K/mcL (0.6-4.6); Lymphocytes % 16.1 %; Mean Corpuscular Hemoglobin 30.3 pg (28.0-33.3); Mean Corpuscular Volume 86.7 fL (83.0-100.0); Mean Platelet Volume 12.2 fL (9.4-12.4); Monocytes # 0.4 K/mcL (0.0-1.3); Neutrophils # 5.3 K/mcL (1.6-8.9); Platelet Count 151 K/mcL (140-400); Red Blood Count 4.95 M/mcL (4.19-5.50); Red Cell Distribution Width 12.3 % (11.5-14.5); Segmented Neutrophils % 76.3 %
[2018-03-07] MEDS ORDERED: Naloxone 0.4 MG/ML INJ IVP PRN ×2 (22:37→23:29)
[2018-03-07 22:40] LABS: Albumin 3.7 g/dL (3.5-5.7); Albumin/Globulin Ratio 1.4 (1.1-2.2); Bilirubin,Total 0.7 mg/dL (0.3-1.0); Calcium 9.3 mg/dL (8.6-10.3); Globulin 2.7 g/dL (2.4-3.5); Potassium 4.6 mEq/L (3.5-5.1); Total Protein 6.4 g/dL (6.4-8.9)
[2018-03-07] MEDS ORDERED: 0.9 % Sodium Chloride 1,000 ML IVC SCH ×2 (22:45→23:29)
[2018-03-07] MEDS ORDERED: cloNIDine HCl 0.1 MG TABLET PO ONE (22:55)
[2018-03-08] MEDS ORDERED: cloNIDine HCl 0.1 MG TABLET PO SCH ×3 (06:27→10:00)
--- NOTE | 2018-03-08 09:41 | Internal Med History&Physical ---
Date of Encounter: 03/08/18 Time of Encounter: 09:15 Assessment and Plan (1) Multiple falls Current visit: Yes Status: Acute Suspect multifactorial etiology including late stroke effect and possible acute renal failure with dehydration. He will be given IV fluids. Physical therapy and occupational therapy evaluations will be ordered and further workup as needed. (2) Acute on chronic renal failure Current visit: Yes Status: Acute HCTZ and losartan will be held. IV fluids will be given an renal indices will be monitored. Qualifiers: Acute renal failure type: unspecified Chronic kidney disease stage: stage 3 (moderate) Qualified Code(s): N17.9 - Acute kidney failure, unspecified; N18.3 - Chronic kidney disease, stage 3 (moderate) (3) Hypertension Current visit: Yes Status: Chronic Will hold HCTZ and losartan as above. We will increase clonidine dose and monitor blood pressure. Qualifiers: Hypertension type: essential hypertension Qualified Code(s): I10 - Essential (primary) hypertension (4) CKD (chronic kidney disease) stage 3, GFR 30-59 ml/min Current visit: No Status: Chronic As per above (5) Laceration Current visit: Yes Status: Acute Will give local wound care and monitor for infection. Internal Medicine - H&P: HPI Chief complaint: Fall and hand laceration, acute on chronic renal failure Admitted From: Emergency Dept Plans for Post Hospital Care: Home History of present illness: Mr. Lockwood is a 77 year old male who was brought to the emergency room after sustaining a fall in his driveway with left palm laceration. He required a number of sutures in the left palm to close the laceration. Since this was his second fall in 10 days requiring suture for laceration sustained requested he be admitted stabilized with probable discharge to SNF. He denies syncope or head trauma with the falls. He states he simply lost his balance ongoing downhill. His neurologic history is significant for an ischemic stroke July 2016 and receiving TPA at [facility] prior to transfer to [facility]. He had right internal capsule ischemic infarct with left arm and leg weakness. He was at [facility] for a few weeks but has returned to independent living. He does not have known seizures. He has a cane and Rollator walker at home but his granddaughter states he does not use them appropriately. Past Med Surg Social Fam HX - Past Medical History Medical history: CVA, diabetes, hyperlipidemia, hypertension Psychiatric history: no psych history - Past Surgical History Surgical History: no surgical history Additional surgical history: bilateral cataract sx - Social History Smoking Status: Never smoker Smokeless Tobacco Status: No Alcohol use: none Drug use: none Internal Medicine - H&P: Meds Aspirin [Lo-Dose Aspirin EC] 81 mg PO DAILY 07/07/17 [History] Cyanocobalamin (Vitamin B-12) [Vitamin B12] 1,000 mcg PO DAILY 07/07/17 [History ] cloNIDine HCl [Clonidine HCl] 0.2 mg PO BID 07/07/17 [History] hydroCHLOROthiazide [Hydrochlorothiazide] 12.5 mg PO DAILY 07/07/17 [History] metFORMIN [Glucophage] 1,000 mg PO BID 07/07/17 [History] Losartan Potassium [Cozaar] 100 mg PO DAILY 10/02/17 [History] Melatonin 5 mg PO HS 02/25/18 [History] cephALEXin [Keflex] 500 mg PO QID #40 capsule 03/07/18 [Rx] 3 Allergy/AdvReac Type Severity Reaction Status Date / Time No Known Allergies Allergy Verified 02/25/18 17:49 All Systems PM: A 10-system review of systems was performed and is negative for pertinent findings except as documented above in the HPI. Review of systems: Review of systems from his July 2017 [facility] hospitalization were reviewed and revised as below. Gen.: His weight has been stable at approximately 99 kg since July 2017 hospitalization. Cardiovascular: He has history of hypertension but no known VT heart failure angina DVT or pulmonary embolus. Respiratory: He smoked for approximately 10 years in early adulthood. He denies chronic lung disease. GI: He denies disorders of his liver gallbladder or exocrine pancreas : No history of hematuria dysuria or kidney stones. He has CKD stage III but was unaware of this. Neurologic: As per history of present illness Endocrine: He was diagnosed with DM2 over 30 years ago. He has hyperlipidemia but no known thyroid disease. Hematology/oncology: Denies blood disorders or cancers. He has had mild thrombocytopenia in the past which has now resolved.. Psychiatric: Denies anxiety depression or other mental health issues Musculoskeletal: He denies arthritis gout other bone joint or muscle disorders. - Constitutional Vitals: Temp Pulse Resp BP Pulse Ox 97.8 F 87 16 155/86 96 03/08/18 06:54 03/08/18 08:04 03/08/18 06:54 03/08/18 08:04 03/08/18 08:04 Exam: Gen.: He is well-developed well-nourished male resting comfortably in bed who appears in no acute distress HEENT: Head is atraumatic. Eyes: EOMI. There is no scleral icterus. Mouth: Mucosa is moist. Neck: Supple and nontender. There is no thyromegaly or adenopathy noted. Heart: Regular without murmurs gallops or ectopics. Lungs: No wheezes or crackles are heard. Abdomen: Soft and nontender. No masses or guarding are noted. Extremities: There is no cyanosis edema or clubbing noted. Dorsalis pedis and posterior tibial pulses are trace to 1+ palpable bilaterally. He has Coban wrap on his left hand. Lifting the edge of the Coban reveals several sutures in the left palm. There is no active oozing seen. He has healing lacerations on his right elbow with 1 area showing a few sutures in place from fall February 25. Neurologic: Mental status: He is talkative and a good historian. Cranial nerves : Smile is asymmetric with slight flattening of left nasolabial fold at rest. Forehead wrinkles bilaterally. Tongue protrudes midline. EOMI. Motor: There is slight pronator drift of the left outstretched arm. Cerebellar: Finger to nose is intact bilaterally. Skin: Warm and dry Internal Med - H&P Results - Labs CBC & Chem 7: 03/07/18 22:19 03/07/18 22:19 - VTE Reasons for not Prescribing Prophylaxis: Medical contraindication
[2018-03-08] MEDS: Acetaminophen 325 MG TABLET PO PRN (13:40)
[2018-03-08] MEDS: cloNIDine HCl 0.1 MG TABLET PO SCH ×2 (13:50→20:16)
[2018-03-08] MEDS ORDERED: D5% in Water 1,000 ML IVC PRN (19:32)
[2018-03-08] MEDS ORDERED: Dextrose Gel 15 GM/37.5 ML TUBE PO PRN ×2 (19:32)
[2018-03-08] MEDS ORDERED: *HR* Dextrose 50 % in Water (Syg) 50 ML SYRINGE IVP PRN (19:32)
[2018-03-08] MEDS: *HR* Enoxaparin 30 MG/0.3 ML SYRINGE SQ SCH (20:16)
[2018-03-08] MEDS: *HR* LORazepam 1 MG TABLET PO PRN (20:16)
[2018-03-08] MEDS: Insulin LISPRO 300 UNITS/3 ML VIAL SQ SCH (20:20)
[2018-03-09 05:25] LABS: Calcium 8.6 mg/dL (8.6-10.3); Magnesium 1.7 mg/dL (1.6-2.6); Potassium 4.3 mEq/L (3.5-5.1)
[2018-03-09] MEDS ORDERED: *HR* Enoxaparin 30 MG/0.3 ML SYRINGE SQ SCH (06:00)
[2018-03-09] MEDS: cloNIDine HCl 0.1 MG TABLET PO SCH ×3 (07:00→21:07)
[2018-03-09] MEDS: *HR* Enoxaparin 30 MG/0.3 ML SYRINGE SQ SCH (07:01)
[2018-03-09] MEDS: Insulin LISPRO 300 UNITS/3 ML VIAL SQ SCH ×3 (08:35→17:27)
[2018-03-09] MEDS: Acetaminophen 325 MG TABLET PO PRN (10:08)
--- NOTE | 2018-03-09 14:06 | Internal Med Progress Note ---
Date of Encounter: 03/09/18 Time of Encounter: 12:45 - Assessment and plan (1) Multiple falls Current Visit: Yes Status: Acute Assessment and plan: March 09. Continue IV rehydration and therapy intervention. (2) Acute on chronic renal failure Current Visit: Yes Status: Acute Assessment and plan: March 09. Creatinine decreased to 2.12 with estimated GFR 31. Continue present regimen. Qualifiers: Acute renal failure type: unspecified Chronic kidney disease stage: stage 3 (moderate) Qualified Code(s): N17.9 - Acute kidney failure, unspecified; N18.3 - Chronic kidney disease, stage 3 (moderate) (3) Hypertension Current Visit: Yes Status: Chronic Assessment and plan: March 09. Continue to hold HCTZ and losartan. Continue clonidine and metoprolol. Qualifiers: Hypertension type: essential hypertension Qualified Code(s): I10 - Essential (primary) hypertension (4) CKD (chronic kidney disease) stage 3, GFR 30-59 ml/min Current Visit: No Status: Chronic Assessment and plan: March 09. As per above (5) Laceration Current Visit: Yes Status: Acute Assessment and plan: March 09. Will refer to orthopedist in a.m. - Subjective Interval history: March 09. He has no new complaints and feels better - Constitutional Vitals: Temp Pulse Resp BP Pulse Ox 99.2 F 51 16 145/74 95 03/09/18 11:25 03/09/18 11:25 03/09/18 11:25 03/09/18 11:25 03/09/18 11:25 Exam: He is sitting in a chair at bedside resting comfortably. The left hand bandage has been removed showing overall good approximation of the laceration borders with intact sutures. There is no significant drainage. I reviewed his medications and lab results. Internal Medicine: Result - Labs CBC & Chem 7: 03/07/18 22:19 03/09/18 04:40 Labs: BMP 03/09/18 04:40 Sodium 135 L Potassium 4.3 Chloride 102 Carbon Dioxide 29 BUN 30 H Creatinine 2.12 H Glucose 191 H Calcium 8.6 - VTE Reasons for not Prescribing Prophylaxis: Medical contraindication Consult Discharge Plan - Plan Referrals: Kieran Clemons DO [Primary Care Provider] - 1 week
[2018-03-09] MEDS: Neosporin OINT 15 GM TUBE TP SCH (22:00)
[2018-03-10 06:23] LABS: Basophils % 0.3 %; Eosinophils # 0.1 K/mcL (0.0-0.6); Eosinophils % 3.1 %; Hematocrit 35.9 % (37.5-50.1); Hemoglobin 12.1 g/dL (12.9-16.9); Immature Granulocytes % 0.3 % (0-4); Lymphocytes # 1.2 K/mcL (0.6-4.6); Lymphocytes % 32.1 %; Mean Corpuscular HGB Conc 33.7 g/dL (31.6-35.5); Mean Corpuscular Hemoglobin 29.5 pg (28.0-33.3); Mean Corpuscular Volume 87.6 fL (83.0-100.0); Mean Platelet Volume 12.3 fL (9.4-12.4); Monocytes # 0.3 K/mcL (0.0-1.3); Monocytes % 7.5 %; Platelet Count 107 K/mcL (140-400); Red Cell Distribution Width 12.3 % (11.5-14.5); Segmented Neutrophils % 56.7 %
[2018-03-10 06:42] LABS: Calcium 8.4 mg/dL (8.6-10.3)
[2018-03-10] MEDS: cloNIDine HCl 0.1 MG TABLET PO SCH ×3 (07:33→21:56)
[2018-03-10] MEDS: *HR* Enoxaparin 30 MG/0.3 ML SYRINGE SQ SCH (07:33)
[2018-03-10] MEDS: Insulin LISPRO 300 UNITS/3 ML VIAL SQ SCH ×5 (08:44→21:43)
[2018-03-10] MEDS: Neosporin OINT 15 GM TUBE TP SCH ×2 (15:22→21:57)
--- NOTE | 2018-03-10 15:42 | Internal Med Progress Note ---
Date of Encounter: 03/10/18 Time of Encounter: 15:30 - Assessment and plan (1) Multiple falls Current Visit: Yes Status: Acute Assessment and plan: March 09. Continue IV rehydration and therapy intervention. (2) Acute on chronic renal failure Current Visit: Yes Status: Acute Assessment and plan: March 09. Creatinine decreased to 2.12 with estimated GFR 31. Continue present regimen. March 10. BUN slightly improved to 28. Creatinine slightly higher at 2.24. Continue present regimen Qualifiers: Acute renal failure type: unspecified Chronic kidney disease stage: stage 3 (moderate) Qualified Code(s): N17.9 - Acute kidney failure, unspecified; N18.3 - Chronic kidney disease, stage 3 (moderate) (3) Hypertension Current Visit: Yes Status: Chronic Assessment and plan: March 09. Continue to hold HCTZ and losartan. Continue clonidine and metoprolol. Qualifiers: Hypertension type: essential hypertension Qualified Code(s): I10 - Essential (primary) hypertension (4) CKD (chronic kidney disease) stage 3, GFR 30-59 ml/min Current Visit: No Status: Chronic Assessment and plan: March 09. As per above (5) Laceration Current Visit: Yes Status: Acute Assessment and plan: March 09. Will refer to orthopedist in a.m. March 10. He will see the orthopedist tomorrow. (6) Anemia Current Visit: Yes Status: Acute Assessment and plan: March 10. We will order anemia testing in a.m. Qualifiers: Anemia type: unspecified type Qualified Code(s): D64.9 - Anemia, unspecified - Subjective Interval history: March 09. He has no new complaints and feels better March 10. He has no new complaints - Constitutional Vitals: Temp Pulse Resp BP Pulse Ox 97.7 F 78 17 174/89 94 03/10/18 06:00 03/10/18 06:00 03/10/18 06:00 03/10/18 06:00 03/10/18 06:00 Exam: He is sitting in a chair at the nurses station and appears in no acute distress. His affect is bright and cheerful. His left hand is wrapped in gauze. I reviewed his medications and lab results. Internal Medicine: Result - Labs CBC & Chem 7: 03/10/18 05:53 06/04/18 05:53 Labs: Short CBC 03/10/18 Range/Units 05:53 WBC 3.6 L (4.3-11.1) K/mcL Hgb 12.1 L D (12.9-16.9) g/dL Hct 35.9 L (37.5-50.1) % Plt Count 107 L (140-400) K/mcL Neutrophils # 2.0 (1.6-8.9) K/mcL BMP 03/10/18 05:53 Sodium 136 Potassium 4.0 Chloride 104 Carbon Dioxide 28 BUN 28 H Creatinine 2.24 H Glucose 223 H Calcium 8.4 L - VTE Reasons for not Prescribing Prophylaxis: Medical contraindication Consult Discharge Plan - Plan Referrals: Kieran Clemons DO [Primary Care Provider] - 1 week
[2018-03-10] MEDS: *HR* LORazepam 1 MG TABLET PO PRN ×2 (16:45→22:48)
[2018-03-11] MEDS: cloNIDine HCl 0.1 MG TABLET PO SCH ×3 (05:02→21:33)
[2018-03-11] MEDS: *HR* Enoxaparin 30 MG/0.3 ML SYRINGE SQ SCH (05:02)
[2018-03-11 07:49] LABS: Basophils % 0.3 %; Eosinophils # 0.1 K/mcL (0.0-0.6); Eosinophils % 3.6 %; Hemoglobin 11.6 g/dL (12.9-16.9); Immature Granulocytes % 0.3 % (0-4); Lymphocytes # 0.9 K/mcL (0.6-4.6); Lymphocytes % 30.9 %; Mean Corpuscular HGB Conc 34.1 g/dL (31.6-35.5); Mean Corpuscular Hemoglobin 29.8 pg (28.0-33.3); Mean Corpuscular Volume 87.4 fL (83.0-100.0); Mean Platelet Volume 12.8 fL (9.4-12.4); Monocytes # 0.2 K/mcL (0.0-1.3); Monocytes % 6.9 %; Red Blood Count 3.89 M/mcL (4.19-5.50); Red Cell Distribution Width 12.2 % (11.5-14.5)
[2018-03-11 07:51] LABS: Neutrophils # 1.7 K/mcL (1.6-8.9); Platelet Count 99 K/mcL (140-400)
[2018-03-11] MEDS: Insulin LISPRO 300 UNITS/3 ML VIAL SQ SCH ×4 (10:01→21:34)
[2018-03-11] MEDS: Neosporin OINT 15 GM TUBE TP SCH ×2 (10:03→21:35)
[2018-03-11 11:12] LABS: BUN/Creatinine Ratio 12 (6-26); Blood Urea Nitrogen 24 mg/dL (8-23); Calcium 8.4 mg/dL (8.6-10.3); Carbon Dioxide 27 mEq/L (23-29); Chloride 106 mEq/L (98-107); Glucose 177 mg/dL (70-105); Osmolality,Calculated 294 (280-300); Potassium 3.4 mEq/L (3.5-5.1); Sodium 138 mEq/L (136-145); eGFR For African Americans 38 (> 60); eGFR For Non-African Americans 32 (> 60)
[2018-03-11 11:51] LABS: % Iron Saturation 24 % (20-55); Iron 68 mcg/dL (65-175); Transferrin 203 mg/dL (203-362)
[2018-03-11 12:22] LABS: Folate 9.4 ng/mL (3.0-16.0)
[2018-03-11 12:33] LABS: Vitamin B12 > 1500 pg/mL (250-1100)
[2018-03-11 12:37] LABS: Ferritin 46 ng/mL (20-250)
[2018-03-11 17:06] LABS: C-Reactive Protein < 5 mg/L (Less than 10)
--- NOTE | 2018-03-11 18:24 | Internal Med Progress Note ---
Date of Encounter: 03/11/18 Time of Encounter: 11:30 - Assessment and plan (1) Multiple falls Current Visit: Yes Status: Acute Assessment and plan: March 09. Continue IV rehydration and therapy intervention. (2) Acute on chronic renal failure Current Visit: Yes Status: Acute Assessment and plan: March 09. Creatinine decreased to 2.12 with estimated GFR 31. Continue present regimen. March 10. BUN slightly improved to 28. Creatinine slightly higher at 2.24. Continue present regimen March 11. Creatinine improved 2.06 with estimated GFR 32. Continue present management. Qualifiers: Acute renal failure type: unspecified Chronic kidney disease stage: stage 3 (moderate) Qualified Code(s): N17.9 - Acute kidney failure, unspecified; N18.3 - Chronic kidney disease, stage 3 (moderate) (3) Hypertension Current Visit: Yes Status: Chronic Assessment and plan: March 09. Continue to hold HCTZ and losartan. Continue clonidine and metoprolol. March 11. Blood pressure above desirable range. We will increase clonidine. Continue metoprolol. Qualifiers: Hypertension type: essential hypertension Qualified Code(s): I10 - Essential (primary) hypertension (4) CKD (chronic kidney disease) stage 3, GFR 30-59 ml/min Current Visit: No Status: Chronic Assessment and plan: March 09. As per above (5) Laceration Current Visit: Yes Status: Acute Assessment and plan: March 09. Will refer to orthopedist in a.m. March 10. He will see the orthopedist tomorrow. March 11. He was seen by [facility] today. Continue present regimen. (6) Anemia Current Visit: Yes Status: Acute Assessment and plan: March 10. We will order anemia testing in a.m. March 11. Anemia testing showed iron 68, transferrin saturation 24%, transferrin 203, ferritin 46, B12 > 1500, and folate 9.4. Suspect due to chronic kidney disease. Continue to monitor CBC. Qualifiers: Anemia type: unspecified type Qualified Code(s): D64.9 - Anemia, unspecified (7) Hypokalemia Current Visit: Yes Status: Acute Assessment and plan: March 11. Will add supplemental potassium. - Subjective Interval history: March 09. He has no new complaints and feels better March 10. He has no new complaints March 11. He has no new complaints. - Constitutional Vitals: Temp Pulse Resp BP Pulse Ox 98.6 F 63 16 150/72 98 03/11/18 10:20 03/11/18 10:20 03/11/18 10:20 03/11/18 10:20 03/11/18 10:20 Exam: He is sitting in a chair at bedside resting comfortably. His affect is cheerful. I reviewed his medications and lab results. I reviewed MMSE score of 16/30. Internal Medicine: Result - Labs CBC & Chem 7: 03/11/18 07:00 03/11/18 07:00 Labs: Short CBC 03/11/18 Range/Units 07:00 WBC 3.0 L (4.3-11.1) K/mcL Hgb 11.6 L (12.9-16.9) g/dL Hct 34.0 L (37.5-50.1) % Plt Count 99 L (140-400) K/mcL Neutrophils # 1.7 (1.6-8.9) K/mcL BMP 03/11/18 07:00 Sodium 138 Potassium 3.4 L Chloride 106 Carbon Dioxide 27 BUN 24 H Creatinine 2.06 H Glucose 177 H Calcium 8.4 L - VTE Reasons for not Prescribing Prophylaxis: Medical contraindication Consult Discharge Plan - Plan Referrals: Kieran Clemons DO [Primary Care Provider] - 1 week
[2018-03-12] MEDS: *HR* Enoxaparin 30 MG/0.3 ML SYRINGE SQ SCH (06:32)
[2018-03-12] MEDS: cloNIDine HCl 0.1 MG TABLET PO SCH ×3 (06:32→22:24)
[2018-03-12] MEDS: Insulin LISPRO 300 UNITS/3 ML VIAL SQ SCH ×4 (08:20→20:42)
[2018-03-12] MEDS: Acetaminophen 325 MG TABLET PO PRN (12:02)
[2018-03-12] MEDS: *HR* LORazepam 1 MG TABLET PO PRN ×2 (12:04→18:21)
[2018-03-12] MEDS: Neosporin OINT 15 GM TUBE TP SCH ×2 (12:08→21:00)
--- NOTE | 2018-03-12 12:27 | Internal Med Progress Note ---
Date of Encounter: 03/12/18 Time of Encounter: 12:20 - Assessment and plan (1) Multiple falls Current Visit: Yes Status: Acute Assessment and plan: March 09. Continue IV rehydration and therapy intervention. March 12. Awaiting approval for transfer to [facility].. (2) Acute on chronic renal failure Current Visit: Yes Status: Acute Assessment and plan: March 09. Creatinine decreased to 2.12 with estimated GFR 31. Continue present regimen. March 10. BUN slightly improved to 28. Creatinine slightly higher at 2.24. Continue present regimen March 11. Creatinine improved 2.06 with estimated GFR 32. Continue present management. Qualifiers: Acute renal failure type: unspecified Chronic kidney disease stage: stage 3 (moderate) Qualified Code(s): N17.9 - Acute kidney failure, unspecified; N18.3 - Chronic kidney disease, stage 3 (moderate) (3) Hypertension Current Visit: Yes Status: Chronic Assessment and plan: March 09. Continue to hold HCTZ and losartan. Continue clonidine and metoprolol. March 11. Blood pressure above desirable range. We will increase clonidine. Continue metoprolol. . Qualifiers: Hypertension type: essential hypertension Qualified Code(s): I10 - Essential (primary) hypertension (4) CKD (chronic kidney disease) stage 3, GFR 30-59 ml/min Current Visit: No Status: Chronic Assessment and plan: March 09. As per above (5) Laceration Current Visit: Yes Status: Acute Assessment and plan: March 09. Will refer to orthopedist in a.m. March 10. He will see the orthopedist tomorrow. March 11. He was seen by [facility] today. Continue present regimen. (6) Anemia Current Visit: Yes Status: Acute Assessment and plan: March 10. We will order anemia testing in a.m. March 11. Anemia testing showed iron 68, transferrin saturation 24%, transferrin 203, ferritin 46, B12 > 1500, and folate 9.4. Suspect due to chronic kidney disease. Continue to monitor CBC. Qualifiers: Anemia type: unspecified type Qualified Code(s): D64.9 - Anemia, unspecified (7) Hypokalemia Current Visit: Yes Status: Acute Assessment and plan: March 11. Will add supplemental potassium. March 12. Recheck labs in a.m. - Subjective Interval history: Marta 3. He has no new complaints and feels better March 10. He has no new complaints March 11. He has no new complaints. March 12. He has no complaints. - Constitutional Vitals: Temp Pulse Resp BP Pulse Ox 7.4 F L 61 16 170/86 95 03/12/18 10:41 03/12/18 10:41 03/12/18 10:41 03/12/18 10:41 03/12/18 06:41 Exam: He is sitting in a chair at bedside eating lunch and appears in no acute distress. His affect is bright and cheerful. I reviewed his medications and lab results. Internal Medicine: Result - Labs CBC & Chem 7: 03/11/18 07:00 03/11/18 07:00 - VTE Reasons for not Prescribing Prophylaxis: Medical contraindication Consult Discharge Plan - Plan Referrals: Kieran Clemons DO [Primary Care Provider] - 1 week
[2018-03-13] MEDS: cloNIDine HCl 0.1 MG TABLET PO SCH ×2 (04:26→13:57)
[2018-03-13] MEDS: *HR* Enoxaparin 30 MG/0.3 ML SYRINGE SQ SCH (04:26)
[2018-03-13 06:47] LABS: Basophils % 0.3 %; Eosinophils # 0.1 K/mcL (0.0-0.6); Eosinophils % 2.3 %; Hematocrit 35.3 % (37.5-50.1); Hemoglobin 12.2 g/dL (12.9-16.9); Immature Granulocytes % 0.3 % (0-4); Lymphocytes % 29.8 %; Mean Corpuscular HGB Conc 34.6 g/dL (31.6-35.5); Mean Corpuscular Hemoglobin 29.7 pg (28.0-33.3); Mean Corpuscular Volume 85.9 fL (83.0-100.0); Mean Platelet Volume 13.3 fL (9.4-12.4); Monocytes # 0.3 K/mcL (0.0-1.3); Monocytes % 8.7 %; Platelet Count 101 K/mcL (140-400); Red Blood Count 4.11 M/mcL (4.19-5.50); Red Cell Distribution Width 12.5 % (11.5-14.5); Segmented Neutrophils % 58.6 %
[2018-03-13 06:48] LABS: Neutrophils # 2.1 K/mcL (1.6-8.9)
[2018-03-13 07:04] LABS: Calcium 8.7 mg/dL (8.6-10.3); Potassium 3.6 mEq/L (3.5-5.1)
[2018-03-13] MEDS: Insulin LISPRO 300 UNITS/3 ML VIAL SQ SCH ×2 (10:46→13:14)
[2018-03-13] MEDS: Neosporin OINT 15 GM TUBE TP SCH (14:12)
[2018-03-13 15:54] VITALS: BP 157/75
--- NOTE | 2018-03-13 17:01 | Discharge Summary ---
Date of Encounter: 03/13/18 Time of Encounter: 16:45 - Discharge Diagnosis (1) Multiple falls Priority: Primary Status: Acute (2) Acute on chronic renal failure Priority: Secondary Status: Acute Qualifiers: Acute renal failure type: unspecified Chronic kidney disease stage: stage 3 (moderate) Qualified Code(s): N17.9 - Acute kidney failure, unspecified; N18.3 - Chronic kidney disease, stage 3 (moderate) (3) Hypertension Priority: Secondary Status: Chronic Qualifiers: Hypertension type: essential hypertension Qualified Code(s): I10 - Essential (primary) hypertension (4) CKD (chronic kidney disease) stage 3, GFR 30-59 ml/min Priority: Secondary Status: Chronic (5) Laceration Priority: Secondary Status: Acute (6) Anemia Priority: Secondary Status: Acute Qualifiers: Anemia type: unspecified type Qualified Code(s): D64.9 - Anemia, unspecified (7) Hypokalemia Priority: Secondary Status: Resolved Hospital course: Mr. Lockwood is a 77 year old male who was brought to the emergency room after sustaining a fall in his driveway with left palm laceration. He required a number of sutures in the left palm to close the laceration. Since this was his second fall in 10 days requiring suture for laceration sustained requested he be admitted stabilized with probable discharge to SNF. Initial orders were written by the emergency room physician. I saw him on March 08 and performed a history and physical. He was given IV fluids. Diuretics were held. Physical And occupational therapy evaluations and ongoing interventions were done. He made satisfactory progress in therapy. It was felt he would benefit from continuing therapy. He will be discharged to [facility] for ongoing care needs. MMSE exam showed a score of 16/30. He will require monitoring at [facility] in a secure unit. He was seen by the orthopedist and recommendations for continuing local wound care to his left hand laceration. He will follow up with [facility] as directed. Clonidine dose was increased and HCTZ and losartan discontinued because of azotemia. He will continue higher dose clonidine and metoprolol at discharge for elevated blood pressure. Amlodipine will be started also. Azotemia showed minimal change with BUN/creatinine being 27 and 2.02 respectively on day of discharge. He will be discharged to [facility] and follow with me. - Time Spent with Patient Total time spent providing and/or coordinating discharge services: - Discharge Medications Prescriptions: ALPRAZolam [Xanax 0.5 MG Tablet] 0.5 mg PO TID PRN 14 Days #42 tablet PRN Reason: Agitation amLODIPine [Norvasc] 5 mg PO DAILY 365 Days tablet Metoprolol XL (24 HR) Succ [Toprol XL] 25 mg PO DAILY 365 Days tab.er.24h Home Medications: Melatonin 5 mg PO HS 02/25/18 [History] ALPRAZolam [Xanax 0.5 MG Tablet] 0.5 mg PO TID PRN 14 Days #42 tablet 03/13/18 [ Rx] Metoprolol XL (24 HR) Succ [Toprol XL] 25 mg PO DAILY 365 Days tab.er.24h 03/13 [Rx] amLODIPine [Norvasc] 5 mg PO DAILY 365 Days tablet 03/13/18 [Rx] cloNIDine HCl [CloNIDine HCl] 0.3 mg PO Q8H tablet 03/13/18 [Rx] Allergies/Adverse Reactions: 3 Allergy/AdvReac Type Severity Reaction Status Date / Time No Known Allergies Allergy Verified 02/25/18 17:49 Date of admission: 03/08/18 14:08 Primary care physician: Kieran Clemons DO - Constitutional Vitals: Temp Pulse Resp BP Pulse Ox 97.5 F L 50 16 157/75 98 03/13/18 15:51 03/13/18 15:51 03/13/18 15:51 03/13/18 15:51 03/13/18 15:51 - Patient Status Disposition: Transfer SNF Condition: Fair Functional capacity at discharge: uses cane/walker - Discharge Instructions - Diet and Activity Activity: as per physical therapy Diet: diabetic diet - VTE Reasons for not Prescribing Prophylaxis: Medical contraindication
--- NOTE | 2018-03-13 17:08 | Physician Discharge Referral ---
ExtendedCare Referral Info Transfer To: [facility] Provider in Charge: Smith Provider in Charge after Transfer: PCP (Smith) - Diagnosis (1) Multiple falls Priority: Primary Status: Acute (2) Acute on chronic renal failure Priority: Secondary Status: Acute (3) Hypertension Priority: Secondary Status: Chronic (4) CKD (chronic kidney disease) stage 3, GFR 30-59 ml/min Priority: Secondary Status: Chronic (5) Laceration Priority: Secondary Status: Acute (6) Anemia Priority: Secondary Status: Acute (7) Hypokalemia Priority: Secondary Status: Resolved Prognosis: Fair Aware of Diagnosis: Patient, Family Aware of Prognosis: Patient, Family - Transfer Medications Prescriptions: ALPRAZolam [Xanax 0.5 MG Tablet] 0.5 mg PO TID PRN 14 Days #42 tablet PRN Reason: Agitation amLODIPine [Norvasc] 5 mg PO DAILY 365 Days tablet Metoprolol XL (24 HR) Succ [Toprol XL] 25 mg PO DAILY 365 Days tab.er.24h Home Medications: Melatonin 5 mg PO HS 02/25/18 [History] ALPRAZolam [Xanax 0.5 MG Tablet] 0.5 mg PO TID PRN 14 Days #42 tablet 03/13/18 [ Rx] Metoprolol XL (24 HR) Succ [Toprol XL] 25 mg PO DAILY 365 Days tab.er.24h 03/13 [Rx] amLODIPine [Norvasc] 5 mg PO DAILY 365 Days tablet 03/13/18 [Rx] cloNIDine HCl [CloNIDine HCl] 0.3 mg PO Q8H tablet 03/13/18 [Rx] Allergies/Adverse Reactions: 3 Allergy/AdvReac Type Severity Reaction Status Date / Time No Known Allergies Allergy Verified 02/25/18 17:49 - Respiratory Orders Smoking Cessation: Smoking cessation has been advised. For more information, call the [place] Tobacco Quit Line at 1-927-BSNZ-NOW. - Mobility Orders Ambulate - Rehabiliation Orders Rehab Potential: Fair Rehab Orders: Evaluation for Physical Therapy, Evaluation for Occupational Therapy (CBC with differential, BMP in one week) - Diet Orders No Concentrated Sweets CERTIFICATION: I certify that the transfer of the above named patient to an Extended Care Facility is necessary for the continuing treatment of the diagnosis listed. The above information is true and accurate reflection of patient's current condition. Confidential - Redisclosure prohibited without a patient's written consent.
[2018-03-13] MEDS: *HR* LORazepam 1 MG TABLET PO PRN (19:03)
== END 2018-03-13 19:15 | DRG 605 ==
LOC: INPPIK 21:00 → EMEROOPIK 21:00 → INPPIK 23:11
PROVIDERS: ADMIT Internal Medicine; ATTEND Internal Medicine